=== PATIENT | female | born 1990 | race Caucasian/White ===

== ENCOUNTER 2019-07-27 17:49 | Observation (INO) | payer OTHER ==
[~2019-07-27] VITALS: Ht 162.6 cm; Wt 82.6 kg
[2019-07-27] MEDS ORDERED: PREN-380 PO (18:20)
[2019-07-27] MEDS ORDERED: FERR325E14 PO (18:20)
== END 2019-07-27 20:50 | disposition home or self-care (01) ==
LOC: MLD 17:49
PROVIDERS: ADMIT Obstetrics & Gynecology; ATTEND Obstetrics & Gynecology
DX: O26.893 Other specified pregnancy related conditions, third trimester (principal); R10.9 Unspecified abdominal pain; Z3A.38 38 weeks gestation of pregnancy
CPT/HCPCS: 76805; G0378; Q0092

== ENCOUNTER 2019-08-01 10:43 | Inpatient (IN) | payer OTHER ==
[~2019-08-01] VITALS: Ht 162.6 cm; Wt 82.1 kg
[2019-08-01] MEDS: LACTATED RINGERS 1,000 ML IV SCH ×2 (02:32→19:03)
[~2019-08-01 10:43] MED LIST: FERR325E14 PO; PREN-380 PO
[2019-08-01] MEDS ORDERED: NALBUPHINE 10 MG/ML AMP IVP PRN (11:05)
[2019-08-01 11:32] LABS: BASOPHILS % (AUTO) 0.5 % (0.0-2.0); EOSINOPHILS # (AUTO) 0.1 K/uL (0-0.4); HEMATOCRIT 36.3 % (36-48); LYMPHOCYTES # (AUTO) 1.2 K/uL (2.5-16.5); LYMPHOCYTES % (AUTO) 16.8 % (20.5-51.1); MEAN CORPUSCULAR HEMOGLOBIN 31 pg (27-31); MEAN CORPUSCULAR HGB CONC 33 g/dL (33-37); MEAN CORPUSCULAR VOLUME 93.8 fL (80-94); MONOCYTES # (AUTO) 0.6 K/uL (0.8-1.0); MONOCYTES % (AUTO) 8.2 % (1.7-9.3); NEUTROPHILS # (AUTO) 5.1 K/uL (1.8-7.7); NEUTROPHILS % (AUTO) 72.5 % (42.2-75.2); PLATELET COUNT (AUTO) 198 K/uL (140-450); RED BLOOD CELL COUNT(AUTO) 3.87 MIL/uL (4.20-5.40); RED CELL DISTRIBUTION WIDTH 16.2 % (11.6-13.7); WHITE BLOOD COUNT (AUTO) 7.1 K/uL (4.8-10.8)
[2019-08-01 11:37] LABS: APPEARANCE,URINE CLOUDY (CLEAR); BILIRUBIN,URINE NEGATIVE (NEGATIVE); BLOOD, URINE TRACE-I (NEGATIVE); COLOR,URINE YELLOW (YELLOW); LEUKOCYTE ESTERASE ,URINE 2+ (NEGATIVE); NITRITE, URINE NEGATIVE (NEGATIVE); UGLUCOSE TRACE (NEGATIVE)
[2019-08-01 12:20] LABS: RBC,URINE 0-5 /HPF (0-5)
[2019-08-01 12:21] LABS: TRICHOMONAS,URINE Moderate /HPF (None Seen)
[2019-08-01 12:22] LABS: COARSE GRANULAR CASTS,URINE 0-10 /LPF (None Seen)
--- NOTE | 2019-08-01 14:49 | NUR ---
PATIENT HAS BEEN SCREENED AND CATEGORIZED LOW NUTRITION RISK. PATIENT WILL BE SEEN WITHIN 7 DAYS OF ADMISSION. 08/07/[address]
[2019-08-01] MEDS ORDERED: MISOPROSTOL 25 MCG TAB VG SCH (16:00)
[2019-08-01] MEDS ORDERED: MISOPROSTOL 25 MCG TAB ONE (20:35)
[2019-08-02] MEDS ORDERED: NALBUPHINE 10 MG/ML AMP ONE (01:14)
[2019-08-02] MEDS ORDERED: PROMETHAZINE 25 MG/ML VIAL ONE (01:15)
[2019-08-02] MEDS ORDERED: PROMETHAZINE 25 MG/ML VIAL IVP ONE (01:30)
[2019-08-02] MEDS ORDERED: BUPIVACAINE 0.125%/NS PREMIX 250 ML ONE (02:20)
[2019-08-02] MEDS ORDERED: BUPIVACAINE 0.125%/NS PREMIX 250 ML EPI SCH (02:20)
[2019-08-02] MEDS: LACTATED RINGERS 1,000 ML IV SCH (03:41)
[2019-08-02] MEDS ORDERED: OXYTOCIN 10 UNITS/ML VIAL IM ONE (05:25)
[2019-08-02] MEDS ORDERED: OXYTOCIN 20 UNITS in LACTATED RINGERS 1,000 ML IV SCH ×2 (05:25→19:22)
[2019-08-02] MEDS ORDERED: OXYTOCIN 20 UNITS/LR PREMIX 1,000 ML IV ONE (05:32)
[2019-08-02 07:20] VITALS: BP 135/75
[2019-08-02] MEDS ORDERED: OXYTOCIN 10 UNITS/ML VIAL ONE (11:12)
[2019-08-02] MEDS ORDERED: LIDOCAINE 1% 500 MG/50 ML VIAL ONE (11:14)
[2019-08-02] MEDS ORDERED: METHYLERGONOVINE 0.2 MG/ML AMP ONE (14:37)
[2019-08-02] MEDS ORDERED: MISOPROSTOL 100 MCG TAB RC SCH (14:40)
[2019-08-02] MEDS ORDERED: MISOPROSTOL 100 MCG TAB ONE (14:40)
[2019-08-02] MEDS ORDERED: CARBOPROST 250 MCG/ML AMP IM ONE (14:46)
[2019-08-02] MEDS ORDERED: DOCUSATE SODIUM 100 MG GELCAP PO PRN (19:25)
[2019-08-02] MEDS ORDERED: BISACODYL 5 MG TABEC PO PRN (19:25)
[2019-08-02] MEDS ORDERED: MEASLES, MUMPS, AND RUBELLA 1 VIAL SQVAC PRN (19:25)
[2019-08-02] MEDS ORDERED: ACETAMINOPHEN 325 MG TAB PO PRN (19:25)
[2019-08-02] MEDS ORDERED: SIMETHICONE 80 MG TAB.CHEW PO PRN (19:25)
[2019-08-02] MEDS ORDERED: BENZOCAINE/MENTHOL 20%-0.5% 60 GM CAN TP PRN (19:25)
[2019-08-02] MEDS ORDERED: IBUPROFEN 600 MG TAB PO PRN (19:25)
[2019-08-03 08:12] LABS: BASOPHILS % (AUTO) 0.5 % (0.0-2.0); EOSINOPHILS # (AUTO) 0.1 K/uL (0-0.4); EOSINOPHILS % (AUTO) 1.5 % (0.0-4.0); HEMATOCRIT 26.5 % (36-48); HEMOGLOBIN 8.9 g/dL (12.0-16.0); LYMPHOCYTES # (AUTO) 1.9 K/uL (2.5-16.5); LYMPHOCYTES % (AUTO) 20.4 % (20.5-51.1); MEAN CORPUSCULAR HEMOGLOBIN 31 pg (27-31); MEAN CORPUSCULAR HGB CONC 34 g/dL (33-37); MEAN CORPUSCULAR VOLUME 93.7 fL (80-94); MONOCYTES # (AUTO) 0.9 K/uL (0.8-1.0); MONOCYTES % (AUTO) 9.5 % (1.7-9.3); NEUTROPHILS # (AUTO) 6.3 K/uL (1.8-7.7); NEUTROPHILS % (AUTO) 68.1 % (42.2-75.2); PLATELET COUNT (AUTO) 146 K/uL (140-450); RED BLOOD CELL COUNT(AUTO) 2.83 MIL/uL (4.20-5.40); RED CELL DISTRIBUTION WIDTH 16.4 % (11.6-13.7); WHITE BLOOD COUNT (AUTO) 9.3 K/uL (4.8-10.8)
== END 2019-08-04 14:00 | disposition home or self-care (01) | DRG 560 ==
LOC: MLD 10:43 → MFCC 08-02 21:54
PROVIDERS: ADMIT Obstetrics & Gynecology; ATTEND Obstetrics & Gynecology
PROC: 10E0XZZ Delivery of Products of Conception, External Approach (ICD-10-PCS; principal; 2019-08-02)
PROC: 0HQ9XZZ Repair Perineum Skin, External Approach (ICD-10-PCS; 2019-08-02)
PROC: 10907ZC Drainage of Amniotic Fluid, Therapeutic from Products of Conception, Via Natural or Artificial Opening (ICD-10-PCS; 2019-08-02)
PROC: 3E0R3BZ Introduction of Anesthetic Agent into Spinal Canal, Percutaneous Approach (ICD-10-PCS; 2019-08-02)
PROC: 00HU33Z Insertion of Infusion Device into Spinal Canal, Percutaneous Approach (ICD-10-PCS; 2019-08-02)
PROC: 3E0P7VZ Introduction of Hormone into Female Reproductive, Via Natural or Artificial Opening (ICD-10-PCS; 2019-08-02)
PROC: 3E0234Z Introduction of Serum, Toxoid and Vaccine into Muscle, Percutaneous Approach (ICD-10-PCS; 2019-08-02)
DX: O70.0 First degree perineal laceration during delivery (principal); O72.1 Other immediate postpartum hemorrhage; Z37.0 Single live birth; Z3A.39 39 weeks gestation of pregnancy; Z37.9 Outcome of delivery, unspecified
CPT/HCPCS: 36415; 51702; 59200; 59409; 76815; 81001; 85025; 86850; 86886; 86900; 86901; 87086; J2001; J2210; J2300; J2550; J2590; J2790; J3490; J7120; Q0092